=== PATIENT | female | born 1995 | race Caucasian/White ===

== ENCOUNTER 2023-11-09 13:04 | Emergency (ER) | payer MEDICAID ==
[~2023-11-09] VITALS: Ht 160 cm; Wt 78.0 kg
[2023-11-09 13:33] LABS: COVID AG,FIA SOURCE NASAL SWAB
[2023-11-09 13:55] LABS: RAPID GROUP A STREP POSITIVE (NEGATIVE)
[2023-11-09] MEDS: ACETAMINOPHEN 500 MG TABLET PO ONE (14:01)
[2023-11-09] MEDS: AMOXICILLIN TRIHYDRATE 250 MG CAPSULE PO ONE (14:01)
[2023-11-09 14:10] LABS: SARS-COV2 (COVID) ANTIGEN,FIA Negative (Negative)
[2023-11-09 14:15] LABS: INFLUENZA TYPE A NEGATIVE FOR TYPE A (NEGATIVE); INFLUENZA TYPE B NEGATIVE FOR TYPE B (NEGATIVE)
[2023-11-09] MEDS ORDERED: IBUP-1492 PO (14:31)
[2023-11-09] MEDS ORDERED: AMOX500C2 PO (14:31)
[2023-11-09 14:49] VITALS: BP 119/78; PULSE 104; RESP 18; O2SAT 100
[2023-11-09 15:07] VITALS: TEMP 98.7
== END 2023-11-09 15:09 | disposition home or self-care (01) ==
LOC: EMS 13:04
DX: J02.0 Streptococcal pharyngitis (principal); R50.9 Fever, unspecified; Z20.822 Contact with and (suspected) exposure to COVID-19
CPT/HCPCS: 87430; 87804; 99283

== ENCOUNTER 2024-12-15 17:20 | Emergency (ER) | payer MEDICAID ==
[~2024-12-15] VITALS: Ht 165.1 cm; Wt 81.8 kg
[~2024-12-15 17:20] MED LIST: AMOX500C2 PO; IBUP-1492 PO
[2024-12-15 17:26] VITALS: TEMP 98.4
[2024-12-15 17:53] LABS: PLATELET COUNT (AUTO) 256 K/uL (150-450); RED BLOOD CELL COUNT(AUTO) 5.01 MIL/uL (4.00-5.20); RED CELL DISTRIBUTION WIDTH 13.5 % (11.5-14.5); WHITE BLOOD COUNT (AUTO) 5.8 K/uL (4.5-11.0)
[2024-12-15 17:57] LABS: CALCIUM, TOTAL 8.8 mg/dL (8.8-10.5); CREATININE 0.47 mg/dL (0.60-1.30); GLOMERULAR FILTR. RATE CALC > 60 mL/min (>60); GLUCOSE,RANDOM 96 mg/dL (70-110); SODIUM SERUM 138 mmol/L (136-145); UREA NITROGEN, BLOOD 7 mg/dL (7-18)
[2024-12-15 19:35] VITALS: BP 121/80; PULSE 75; RESP 14; O2SAT 99
== END 2024-12-15 20:34 | disposition home or self-care (01) ==
LOC: EMS 17:37
DX: O20.0 Threatened abortion (principal); Z79.899 Other long term (current) drug therapy
CPT/HCPCS: 76801; 80048; 84702; 85025; 99284